=== PATIENT | female | born 1950 | race Caucasian/White ===

== ENCOUNTER 2017-03-21 13:43 | Emergency (ER) | payer OTHER ==
[~2017-03-21] VITALS: Ht 160 cm; Wt 59.0 kg
[2017-03-21] MEDS ORDERED: ZOMIG ZMT5 MG PO (14:01)
[2017-03-21] MEDS ORDERED: TOPAMAX50 MG PO (14:01)
[2017-03-21] MEDS ORDERED: DEPRESSION MED (14:02)
[2017-03-21 14:58] LABS: ABSOLUTE BASOPHILS 0.1 thou/uL (0.0-0.2); ABSOLUTE LYMPHOCYTES 1.7 thou/uL (0.8-5.3); ABSOLUTE MONOCYTES 0.6 thou/uL (0.0-1.2); ABSOLUTE NEUTROPHILS 5.2 thou/uL (1.6-8.1); BASOPHILS 0.7 %; EOSINOPHILS 0.2 %; HEMOGLOBIN 15.2 gm/dL (12.0-15.0); LYMPHOCYTES 22.6 %; MCH 31.4 pg (26.0-34.0); MCHC 35.5 g/dL (28.0-37.0); MCV 88.5 fL (80.0-100.0); MONOCYTES 7.5 %; MPV 10.3 fl. (7.2-11.1); NUCLEATED RBCS 0 /100WBC; PLATELET COUNT* 218 thou/uL (150-400); RBC 4.85 mil/uL (4.20-5.00); RDW-CV 14.2 % (10.5-14.5); WBC 7.5 thou/uL (4.0-11.0)
[2017-03-21 15:22] LABS: ANION GAP 10 mmol/L (7-16); BUN 22 mg/dL (7-18); CALCIUM 9.3 mg/dL (8.5-10.1); CHLORIDE 108 mmol/L (98-107); CO2 25 mmol/L (21-32); CREATININE 0.9 mg/dL (0.6-1.3); GLUCOSE 88 mg/dL (70-99); POTASSIUM 4.2 mmol/L (3.5-5.1); SODIUM 143 mmol/L (136-145)
[2017-03-21 15:30] LABS: ALBUMIN 3.6 g/dL (3.4-5.0); ALKALINE PHOSPHATASE 68 U/L (46-116); SGOT 15 U/L (15-37); SGPT 22 U/L (30-65); TOTAL BILIRUBIN 0.4 mg/dL (<0.1-1.0); TOTAL PROTEIN 6.7 g/dL (6.4-8.2); TROPONIN-I LEVEL <0.06 ng/mL (<0.06)
[2017-03-21 16:35] LABS: INFLUENZA A ANTIGEN None Detected (None Detect); INFLUENZA B ANTIGEN None Detected (None Detect)
[2017-03-21] MEDS ORDERED: MEDROLDOSEPACK PO (17:12)
[2017-03-21] MEDS ORDERED: PROAIR HFA8.5 GM PO (17:12)
[2017-03-21] MEDS ORDERED: NEBULIZER MISCELL (17:12)
[2017-03-21 17:28] VITALS: BP 100/62
--- NOTE | 2017-03-22 11:40 | EKG ---
[place] [address] ELECTROCARDIOGRAM REPORT Name: JOSIAH DIAZ [id number] Admission: 03/21/17 Attend Phys: Discharge: 03/21/17 Date of : 48 Report #: [id number] THIS REPORT FOR: //name// [facility] ED Test Date: 2017-03-21 Test Time: 14:44:45 Pat Name: JOSIAH BURTITZEL Department: Room: Gender: F Senior Computer Specialist: Katiuska RODRÍGUEZ : 1950 Requested By: Lisa Edwards Order Number: [id number] MD: Giovanny Yates Measurements Intervals Stuart Rate: 62 P: 35 CT: 168 QRS: 41 QRSD: 103 T: 29 QT: 422 QTc: 429 Interpretive Statements Sinus rhythm No previous ECG available for comparison Electronically Signed On 03-22-2017 11:40:49 [employer]AL WASHING MACHINE OPERATOR by Giovanny Yates [email or web address] <ELECTRONICALLY SIGNED> By: Giovanny Yates MD, [facility] 03/22/17 1140 [id number] 1444 Giovanny Yates MD, FACC /EPI
== END 2017-03-21 17:30 | disposition home or self-care (01) ==
LOC: M.ERS 13:43
PROVIDERS: Personal Emergency Response Attendant
DX: J38.5 Laryngeal spasm (principal); B34.9 Viral infection, unspecified; G43.909 Migraine, unspecified, not intractable, without status migrainosus; Z88.5 Allergy status to narcotic agent; Z88.8 Allergy status to other drugs, medicaments and biological substances